=== PATIENT | female | born 1995 | race Caucasian/White ===

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

== ENCOUNTER 2018-07-15 14:24 | Emergency (ER) | payer SELFPAY ==
--- NOTE | 2018-07-15 15:02 | ER Document Report ---
ED Medical Screen (RME) - General Chief Complaint: Vag Bleeding, +preg <12wks Stated Complaint: VAGINAL SPOTTING Time Seen by Provider: 07/15/18 14:54 Notes: 22 years old female who is first time , presents with vaginal bleeding and spotting. For the last few days TRAVEL OUTSIDE OF THE [place] IN LAST 30 DAYS: No - Related Data Allergies/Adverse Reactions: No Known Allergies Allergy (Verified 07/15/18 14:32) Past Medical History Renal/ Medical History: Denies: Hx Peritoneal Dialysis - Immunizations Hx Diphtheria, Pertussis, Tetanus Vaccination: Yes Physical Exam - Vital signs Vitals: Temp Pulse Resp BP Pulse Ox 97.7 F 76 16 114/68 100 07/15/18 14:37 07/15/18 14:37 07/15/18 14:37 07/15/18 14:37 07/15/18 14:37 Course - Vital Signs Vital signs: Temp Pulse Resp BP Pulse Ox 97.7 F 76 16 114/68 100 07/15/18 14:37 07/15/18 14:37 07/15/18 14:37 07/15/18 14:37 07/15/18 14:37
[2018-07-15 16:13] LABS: AMORPHOUS SEDIMENT,URINE TRACE /HPF; APPEARANCE,URINE CLOUDY; BILIRUBIN,URINE NEGATIVE (NEGATIVE); COLOR,URINE YELLOW; GLUCOSE, URINE NEGATIVE (NEGATIVE); KETONES,URINE 20 mg/dL (NEGATIVE); LEUKOCYTE ESTERASE,URINE NEGATIVE (NEGATIVE); NITRITE,URINE NEGATIVE (NEGATIVE); PROTEIN,URINE NEGATIVE (NEGATIVE); URINE SPECIFIC GRAVITY 1.023
[2018-07-15 16:15] LABS: ABSOLUTE EOSINOPHILS # (AUTO) 0.2 10^3/uL (0.0-0.6); ABSOLUTE LYMPHOCYTES (AUTO) 2.4 10^3/uL (0.5-4.7); ABSOLUTE MONOCYTES (AUTO) 0.6 10^3/uL (0.1-1.4); ABSOLUTE NEUT (AUTO) 4.7 10^3/uL (1.7-8.2); BASOPHILS % (AUTO) 0.4 % (0-2); EOSINOPHILS % (AUTO) 2.6 % (0-6); HEMOGLOBIN 14.3 g/dL (12.0-15.5); LYMPHOCYTES % (AUTO) 30.7 % (13-45); MEAN CORPUSCULAR HEMOGLOBIN 30.4 pg (27.0-33.4); MEAN CORPUSCULAR HGB CONC 34.1 g/dL (32.0-36.0); MEAN CORPUSCULAR VOLUME 89 fl (80-97); MONOCYTES % (AUTO) 7.3 % (3-13); PLATELET COUNT 313 10^3/uL (150-450); RED BLOOD COUNT 4.71 10^6/uL (3.72-5.28); RED CELL DISTRIBUTION WIDTH 12.7 % (11.5-14.0); TOTAL CELLS COUNTED % (AUTO) 100 %; WHITE BLOOD COUNT 7.9 10^3/uL (4.0-10.5)
--- NOTE | 2018-07-15 17:09 | RADIOLOGY REPORT (SQ) ---
EXAM DESCRIPTION: U/S 1TRIMESTER/1GEST W/DOPPLER COMPLETED DATE/TIME: 07/15/2018 4:33 pm REASON FOR STUDY: and bleeding COMPARISON: None. TECHNIQUE: Transabdominal static and realtime grayscale images acquired of the pelvis. Additional se lected spectral and color Doppler images recorded. All images stored on PACs. bHCG: Not available. CLINICAL DATES: 8 weeks 3 days. LIMITATIONS: None. FINDINGS: FETUS: Single Living intrauterine . ULTRASOUND EGA: 8 week 0 days based on crown-rump length. ULTRASOUND ELI: 02/26/2019 EFW: Not applicable less than 20 weeks. CRL: Visualized. FHR: 171 beats per minute. SURVEY: No visualized anomalies. AMNIOTIC FLUID: Adequate amount. PLACENTA: Not yet developed due to early gestation. SUBCHORIONIC BLEED: Yes. SIZE OF BLEED: 3.3 X 1.7 X 3.6 CM. UTERUS: No masses. No anomalies. CERVICAL LENGTH: 3.3 cm. Closed. RIGHT ADNEXA: Normal ovary with normal vascular flow. No adnexal free fluid. No adnexal masses. LEFT ADNEXA: Normal ovary with normal vascular flow. No adnexal free fluid. No adnexal masses. FREE FLUID: None. OTHER: No other significant finding. IMPRESSION: LIVING INTRAUTERINE . EGA 8 WEEKS 0 DAYS. PROBABLE SUBCHORIONIC BLEED. THIS IS MEASURED AT 3.3 X 1.7 X 3.6 CM. Trimester of : First - 0 to 13 weeks. TECHNICAL DOCUMENTATION: JOB ID: [id number] [employer]- All Rights Reserved Reading location - IP/workstation name: [email or web address]
--- NOTE | 2018-07-15 19:19 | ER Document Report ---
ED General - General Chief Complaint: Vag Bleeding, +preg <12wks Stated Complaint: VAGINAL SPOTTING Time Seen by Provider: 07/15/18 14:54 Mode of Arrival: Ambulatory Information source: Patient TRAVEL OUTSIDE OF THE [place] IN LAST 30 DAYS: No - HPI Patient complains to provider of: Vaginal bleeding in early Onset: Other - 10 days Onset/Duration: Intermittent Quality of pain: No pain Severity: Mild Context: Early Associated symptoms: None Exacerbated by: Denies Relieved by: Denies Similar symptoms previously: No Recently seen / treated by doctor: No Notes: Patient is a 22-year-old female coming in today with chief complaint vaginal bleeding and spotting with a positive test. Not having any excessive pain. No fevers or shaking chills. No dysuria. No vaginal discharge besides the blood. This is her first . Does not know her blood type - Related Data Allergies/Adverse Reactions: No Known Allergies Allergy (Verified 07/15/18 14:32) Past Medical History - General Information source: Patient - Social History Smoking Status: Former Smoker Family History: Reviewed & Not Pertinent Patient has suicidal ideation: No Patient has homicidal ideation: No Renal/ Medical History: Denies: Hx Peritoneal Dialysis - Immunizations Hx Diphtheria, Pertussis, Tetanus Vaccination: Yes Review of Systems - Review of Systems Notes: Constitutional: No fevers. No chills. EENT: No eye redness. No eye pain. No ear pain. No sore throat. Cardiovascular: No chest pain. No palpitations. Respiratory: No cough. No shortness of breath. No respiratory distress. Gastrointestinal: No abdominal pain. No nausea, vomiting, or diarrhea. Genitourinary: Vaginal bleeding Musculoskeletal: Atraumatic. No swelling. No deformities. Skin: No rash or lesions. Lymphatic: No swollen lymph nodes. Neurologic: No headache. No syncope. Psychiatric: No suicidal or homicidal ideation. Physical Exam - Vital signs Vitals: Temp Pulse Resp BP Pulse Ox 97.7 F 76 16 114/68 100 07/15/18 14:37 07/15/18 14:37 07/15/18 14:37 07/15/18 14:37 07/15/18 14:37 - Notes Notes: General: Well-developed, well-nourished. In no acute distress. Non-toxic appearing. Cardiac: Well-perfused. Regular rate and rhythm. No murmurs, rubs, or gallops. Pulmonary: No respiratory distress. No cyanosis. Bilateral lung fiels are clear to auscultation. Abdominal: Non-distended. Non-rigid. Bowels sounds are present in all four quadrants. No guarding or rebound. HEENT: Head is atraumatic. Conjunctivae not reddened. No tearing. PERRL. EOMI. Orbits atraumatic. No periorbital swelling or erythema. Oropharynx is without erythema, swelling, or exudates. Neck: Supple. No adenopathy. No meningismus. Dermatologic: Warm with good turgor. No rash. Atraumatic. Chest: Atraumatic. No chest wall tenderness to palpation. Musculoskeletal: Moves all extremities well. No range of motion deficits. no muscular or joint tenderness. No paraspinal muscle tenderness. no midline spinal tenderness or step-off. Genitourinary: Chaperoned by franklin. Based dried blood on the external g enitalia. Otherwise normal. Speculum exam reveals moderate amount of dark blood in the vaginal vault. Cervix is closed. Some flow of dark blood from the closed cervix. Bimanual exam reveals no adnexal tenderness or masses. Cervical motion tenderness negative Neurologic: No gross neurologic deficits. Psychiatric: Normal mood. Course - Re-evaluation Re-evalutation: 07/15/18 19:17 Patient has a reassuring ultrasound. Her lab work is stable. Rh+ blood type. We will not be need RhoGam. She has by ultrasound an 8-week gestation with heartbeat. There is subchorionic hemorrhage present. We discussed all these findings with her. Best for her to continue pelvic rest. Encouraged clear fluid hydration. Told her to expect some dark vaginal blood as this is consistent with her subchorionic hematoma. Follow-up with a gliding pilot instructor. If bleeding gets worse or if any new symptoms that are concerning she can return f or recheck in the ED. - Vital Signs Vital signs: Temp Pulse Resp BP Pulse Ox 97.7 F 76 16 114/68 100 07/15/18 14:37 07/15/18 14:37 07/15/18 14:37 07/15/18 14:37 07/15/18 14:37 - Laboratory Result Diagrams: 07/15/18 15:47 Laboratory results interpreted by me: 07/15/18 15:47 Urine Ketones 20 H Urine Urobilinogen 2.0 H - Diagnostic Test Radiology reviewed: Reports reviewed Discharge - Discharge Clinical Impression: Threatened Condition: Good Disposition: HOME, SELF-CARE Instructions: Bleeding During Early ([facility]), Threatened Miscarriage ([facility]) Additional Instructions: Return to the ER if excessive pelvic pain, high fevers, excessive vaginal bleeding, or any other symptom that is concerning. Referrals: TAIWO KENYON MD [ACTIVE STAFF] - Follow up as needed
[2018-07-15 19:28] VITALS: BP 110/56
[2018-07-15 20:23] LABS: T.VAGINALIS (WET MOUNT) NO TRICHOMONAS SEEN; WBCS (WET MOUNT) 1+ WBCS SEEN; YEAST (WET MOUNT) NO YEAST SEEN
[2018-07-15 20:24] LABS: RBCS (WET MOUNT) 4+ RBCS SEEN
[2018-07-15 21:54] LABS: CHLAM PCR NOT DETECTED (NOT DETECT); GON PCR NOT DETECTED (NOT DETECT)
== END 2018-07-15 19:28 | disposition home or self-care (01) ==
LOC: ER 14:24
DX: O20.0 Threatened abortion (principal); Z3A.08 8 weeks gestation of pregnancy; Z87.891 Personal history of nicotine dependence
CPT/HCPCS: 36415; 76801; 81001; 85025; 86900; 86901; 87210; 87491; 87591; 93976; 99284

== ENCOUNTER → 2018-08-08 | Outpatient (CLI) | payer SELFPAY ==
--- NOTE | 2018-08-08 12:06 | RADIOLOGY REPORT (SQ) ---
EXAM DESCRIPTION: U/S OB TRANSVAGINAL W/O DOP COMPLETED DATE/TIME: 08/08/2018 11:27 am REASON FOR STUDY: THREATENED O20.0 THREATENED COMPARISON: None. TECHNIQUE: Transabdominal none static and realtime grayscale images acquired of the pelvis. Addition al selected spectral and color Doppler images recorded. All images stored on PACs. bHCG: None available CLINICAL DATES: Unavailable LIMITATIONS: None. FINDINGS: FETUS: Single Living intrauterine . ULTRASOUND EGA: 11 weeks 5 days ULTRASOUND ELI: Due date 02/22/2019 EFW: Not applicable less than 20 weeks. CRL: 5 cm FHR: 171 beats per minute. SURVEY: Too early to assess AMNIOTIC FLUID: Adequate amount. PLACENTA: Developing fundal SUBCHORIONIC BLEED: Yes SIZE OF BLEED: A large subchorionic hemorrhage is present measuring at least 8 x 3 cm in size, involv ing greater than 50% of the circumference of the gestational sac. This report was called to Vicente costello, 08/08/2018, 1155 hours UTERUS: No masses. No anomalies. Uterus is 11 x 7 x 10 cm CERVICAL LENGTH: 3 cm Closed. RIGHT ADNEXA: Not visualized due to adnexal bowel gas LEFT ADNEXA: Not visualized due to adnexal bowel gas FREE FLUID: None. OTHER: No other significant finding. IMPRESSION: LIVING INTRAUTERINE . EGA 11 weeks 5 days Trimester of : First - 0 to 13 weeks. COMMENT: Pertinent findings on the imaging study reported as a CRITICAL RESULT to VICENTE munoz t12:00 on 08/08/2018. Category of Critical Result: Large subchorionic hemorrhage TECHNICAL DOCUMENTATION: JOB ID: [id number]- All Rights Reserved Reading location - IP/workstation name: [email or web address]
== END ==
LOC: RAD 10:55
PROVIDERS: ATTEND Midwife
DX: O20.0 Threatened abortion (principal)
CPT/HCPCS: 76817